=== PATIENT | female | born 1995 | race African-American/Black ===

== ENCOUNTER 2016-05-16 16:09 | Emergency (ER) | payer SELFPAY ==
[2016-05-16 16:41] VITALS: RESP 17
--- NOTE | 2016-05-16 18:15 | EDPHY ---
H & P Time Seen by Provider: 05/16/16 17:58 HPI/ROS: CHIEF COMPLAINT: Rash in armpits HISTORY OF PRESENT ILLNESS: 21-year-old female presents with a 2 day history of a itchy and painful rash in her armpits. She 1st noticed the rash 2 days ago. She has shaved her armpits more recently than usual. She also is using a new fragrance to her so. No prior similar symptoms. No other itchy areas. REVIEW OF SYSTEMS: Constitutional: No fever, no chills Musculoskeletal: No arm pain or swelling Neurological: No headache Psychiatric: No depression Past Medical/Surgical History: Denies Smoking Status: Never smoked Physical Exam: General Appearance: Alert, no distress Eyes: Pupils equal and round, no conjunctival pallor or injection ENT, Mouth: Mucous membranes moist Neck: Normal inspection Respiratory: Lungs are clear to auscultation Cardiovascular: Regular rate and rhythm Neurological: A&O, nonfocal, normal gait Skin: Warm and dry, raised papular rash in the axilla, no fluctuance Psychiatric: Mood and affect normal Constitutional: Initial Vital Signs Temperature (C) 36.9 C 05/16/16 16:38 Heart Rate 81 05/16/16 16:38 Respiratory Rate 17 05/16/16 16:38 Blood Pressure 142/96 H 05/16/16 16:38 O2 Sat (%) 96 05/16/16 16:38 O2 Delivery Mode Room Air Allergies/Adverse Reactions: nickel Allergy (Verified 05/16/16 16:38) Home Medications: Medication Instructions Recorded Cephalexin [Keflex (*)] 500 mg PO TID #21 cap 05/16/16 Fluconazole [Diflucan] 200 mg PO ONCE #2 tablet 05/16/16 predniSONE 1 tab PO DAILY #15 tab 05/16/16 Medical Decision Making ED Course/Re-evaluation: This patient presents with contact dermatitis. There is no evidence of abscess or cellulitis. - Data Points Medications Given: Discontinued Medications Prednisone (Prednisone) 60 mg PO EDNOW ONE Stop: 05/16/16 18:22 Last Admin: 05/16/16 18:38 Dose: 60 mg Departure - Departure Disposition: Home, Routine, Self-Care Clinical Impression: Contact dermatitis Condition: Good Instructions: Contact Dermatitis (ED) Additional Instructions: Return for worsening symptoms or any concerns. Discard your razor. Avoid new soaps and detergents. Referrals: Alice Bro MD [Medical Doctor] - 5-7 days, if not improved Prescriptions: Cephalexin [Keflex (*)] 500 mg PO TID #21 cap Fluconazole [Diflucan] 200 mg PO ONCE #2 tablet predniSONE 1 tab PO DAILY #15 tab
[2016-05-16] MEDS ORDERED: predniSONE 20 MG TAB PO ONE (18:21)
[2016-05-16 18:39] VITALS: BP 132/84; PULSE 68; TEMP 98.2; O2SAT 99
== END 2016-05-16 18:38 | disposition home or self-care (01) ==
DX: L25.9 Unspecified contact dermatitis, unspecified cause (principal)

== ENCOUNTER 2016-10-17 16:41 | Emergency (ER) | payer SELFPAY ==
[2016-10-17 16:46] VITALS: BP 136/101; PULSE 126; RESP 16; TEMP 98.6; O2SAT 97
--- NOTE | 2016-10-17 17:46 | EDPHY ---
H & P Time Seen by Provider: 10/17/16 17:15 HPI/ROS: CHIEF COMPLAINT: Gas, abdominal bloating HISTORY OF PRESENT ILLNESS: 21-year-old female presents to the emergency department by private vehicle complaining of gas and intermittent diarrhea for last several months. Patient has not been on antibiotics recently. She saw a naturopathic doctor who prescribed probiotics and enzymes which she has been taking and she feels like her symptoms are getting worse. She was a pescetarian up until about 2 months ago, however she states no other change to her diet. She reports no trauma. Denies chest pain or difficulty breathing. Denies fevers or chills. No urinary symptoms. Her last menstrual period was a few weeks ago although prior to that she skipped 2 cycles. She states that her boyfriend has noted very foul smelling of flatulence. The patient states that she cannot smell it but feels that other scan. She has tried no over-the- counter medication. She does have occasional abdominal pain associated with although does not have any now. She has not been on antibiotics. No recent travel. REVIEW OF SYSTEMS: Constitutional: No fever, no chills. Eyes: No double or blurry vision. ENT: No sore throat. Respiratory: No cough, no shortness of breath. Cardiac: No chest pain. Gastrointestinal: As above. No vomiting. Occasional diarrhea. No blood in her stool. Genitourinary: No dysuria. Musculoskeletal: No neck or back pain. Skin: No rashes. Neurological: No headache. Past Medical/Surgical History: Negative Social History: Single Smoking Status: Current every day smoker Physical Exam: General Appearance: Alert, no distress. Afebrile. Eyes: Pupils equal and round. Extraocular motions are all intact. ENT: Mouth: Mucous membranes moist. Respiratory: No wheezing, rhonchi, or rales, lungs are clear to auscultation. Cardiovascular: Regular rate and rhythm. Gastrointestinal: Abdomen is soft and nontender, no masses, no rebound or guarding, bowel sounds normal. No CVA tenderness bilaterally Neurological: Alert and oriented x 3, cranial nerves II through XII grossly intact Skin: Warm and dry, no rashes. Musculoskeletal: Nontender to palpate along the cervical, thoracic or lumbar spine. Neck is supple. Extremities: Full range of motion and no peripheral edema. Psychiatric: Patient is oriented X 3, there is no agitation. Constitutional: Initial Vital Signs Temperature (C) 37 C 10/17/16 16:42 Heart Rate 126 H 10/17/16 16:42 Respiratory Rate 16 10/17/16 16:42 Blood Pressure 136/101 H 10/17/16 16:42 O2 Sat (%) 97 10/17/16 16:42 O2 Delivery Mode Room Air Allergies/Adverse Reactions: nickel Allergy (Verified 10/17/16 16:41) Home Medications: Medication Instructions Recorded NK [No Known Home Meds] 10/17/16 Medical Decision Making ED Course/Re-evaluation: 21-year-old female presents to the emergency department with gas and bloating. The patient has a normal examination. She currently has no abdominal pain. Her symptoms have been present for 2 months. I did discuss possible Helicobacter pylori. I also discussed celiac disease. I encouraged her to drink plenty of fluids and to have close follow-up with admitting clerk. I do not think imaging studies are indicated. She has no reported trauma. She has no pain with palpation in the abdomen currently. Her bowel sounds are normal. Her vital signs are stable. Urine HCG was negative. Differential Diagnosis: Including but not limited to irritable bowel syndrome, inflammatory bowel disease, infectious diarrhea, colitis, bowel obstruction Departure - Departure Disposition: Home, Routine, Self-Care Clinical Impression: Flatulence Abdominal pain Qualifiers: Abdominal location: generalized Qualified Code(s): R10.84 - Generalized abdominal pain Condition: Good Instructions: Gas and Bloating (ED) Additional Instructions: Diet and activity as tolerated. You need to be seen by Gastroenterology for your ongoing chronic gas and bloating. Try to minimize high-fiber foods as this can sometimes cause worsening bloating and gas. Drink plenty of fluids. Abdominal Pain: Return to the Emergency Department immediately for increasing pain, fever, vomiting, or if not completely better in 8-12 hours. Referrals: Benjamin Smith MD [[facility] [place] Primary Care Provider] - 2-3 days without fail ( Proof Technician on-call)
== END 2016-10-17 18:33 | disposition home or self-care (01) ==
DX: R10.84 Generalized abdominal pain (principal); R14.3 Flatulence; F17.200 Nicotine dependence, unspecified, uncomplicated

== ENCOUNTER 2016-10-24 23:13 | Emergency (ER) | payer SELFPAY ==
[2016-10-24] MEDS ORDERED: NS 1,000 ML IV ONE (23:29)
--- NOTE | 2016-10-24 23:34 | EDPHY ---
H & P <Jordyn Infante - Last Filed: 10/25/16 01:56> Stated Complaint: productive cough x 2 weeks, diarrhea, cramps x 2 days Source: Patient Exam Limitations: No limitations - Personal History LMP (Females 10-55): 15-21 Days Ago Current Tetanus/Diphtheria Vaccine: Yes - Medical/Surgical History Hx Asthma: No Hx Chronic Respiratory Disease: No Hx Diabetes: No Hx Cardiac Disease: No Hx Renal Disease: No Hx Cirrhosis: No Hx Alcoholism: No Hx HIV/AIDS: No Hx Splenectomy or Spleen Trauma: No Other PMH: Tonsillectomy - Social History Smoking Status: Former smoker <MayerGurmeet - Last Filed: 10/26/16 01:02> Time Seen by Provider: 10/24/16 23:31 HPI/ROS: ED PA DICTATION I evaluated and participated in the management of the patient. I also evaluated the patient independently. My co-signature indicates that I have reviewed this chart and I agree with the findings and plan of care as documented. My personal H&P findings include: This is a healthy 21-year-old female who presents with cough and subsequent diarrhea. Chest x-ray reveals bronchitis, for this I will treat her with albuterol and Tessalon Perles. She does not demonstrate any signs of a bacterial infection. Labs including CBC and chemistry panel are unremarkable. She was unable to provide a stool specimen for us. She felt well in the emergency room. Blood pressure continued to be elevated throughout her stay. I have discussed this with her and she says she has had elevated blood pressure readings in the past. She does not have a strong family history of hypertension. She denies any new medication use. She does not have a primary care doctor currently. Creatinine is normal. I have instructed her that over the next 1-2 days she needs to check her blood pressure at a pharmacy and if she has any elevated readings, she will need follow up with primary care. She does not have insurance, I have given her the information for [facility]. She says she will be able to go there and understands the consequences of untreated hypertension. (Jordyn Infante) CHIEF COMPLAINT: Cough x2 weeks, diarrhea x2 days HISTORY OF PRESENT ILLNESS: Patient complains of productive cough for 2 weeks. Gradual onset. Constant duration. Will see productive, occasionally dry. No improvement with over-the- counter medications. No chest pain. No shortness of breath. She associates this with some malaise and feeling ill. For the past 2 days she has also had some abdominal cramping and diarrhea. There are several episodes per day of diarrhea without blood or mucus. [place] warm at times but has not measured her temperature. No vomiting. Occasional nausea. She has not yet been evaluated for these complaints. No recent hospitalizations or antibiotics. Last menstrual period was 3 weeks ago. No other associated complaints or modifying factors. REVIEW OF SYSTEMS: Ten systems reviewed and are negative unless otherwise noted in the HPI PAST MEDICAL HISTORY: Denies any medical history SOCIAL HISTORY: Nonsmoker. No alcohol use. Works in [employer] FAMILY HISTORY: Noncontributory EXAMINATION General Appearance: Alert, no distress Head: normocephalic, atraumatic Eyes: Pupils equal and round, no conjunctival pallor or injection ENT, Mouth: Mucous membranes moist. Airway widely patent Neck: Normal inspection, supple, non-tender Respiratory: No wheezing or crackles. Mild rhonchi. No diminishment or retractions. No distress Cardiovascular: Tachycardic rate and regular rhythm. No murmur. Gastrointestinal: Abdomen is soft and nontender. No distention. No tympany. No rigidity. Nonacute abdomen. Back: non-tender, no bony abnormalities Neurological: A&O, nonfocal, normal gait Skin: Warm and dry, no rash Extremities: Nontender, no pedal edema Psychiatric: Mood and affect normal DIFFERENTIAL DIAGNOSES: Including but not limited to dehydration, viral illness, pneumonia, bronchitis, colitis, gastroenteritis, enteritis MDM: 11:30 p.m. Cough of 2 weeks duration with no improvement as well as 2 days of diarrhea. Vital signs reveal mild tachycardia no tachypnea and no hypoxia. Abdominal exam is benign. I have ordered IV fluid, laboratory studies and chest x-ray. She is resting comfortably in no acute distress. SUPERVISION: Patient was evaluated in conjunction with the supervising physician. Please see their note for details. (Gurmeet Mayer) Constitutional: Initial Vital Signs Temperature (C) 97.7 F 10/24/16 23:15 Heart Rate 98 10/24/16 23:15 Respiratory Rate 16 10/24/16 23:15 Blood Pressure 152/100 H 10/24/16 23:15 O2 Sat (%) 98 10/24/16 23:15 O2 Delivery Mode Room Air Allergies/Adverse Reactions: nickel Allergy (Verified 10/24/16 23:18) Home Medications: Medication Instructions Recorded Benzonatate [Tessalon Pearles (RX)] 100 mg PO Q4-6PRN PRN #20 cap 10/25/16 Medical Decision Making - Diagnostics Imaging: I viewed and interpreted images myself <Jordyn Infante - Last Filed: 10/25/16 01:56> Departure <Jordyn Infante - Last Filed: 10/25/16 01:56> <Gurmeet Mayer - Last Filed: 10/26/16 01:02> - Departure Disposition: Home, Routine, Self-Care Clinical Impression: Bronchitis, Elevated blood pressure reading Diarrhea Qualifiers: Diarrhea type: presumed infectious Qualified Code(s): A09 - Infectious gastroenteritis and colitis, unspecified Condition: Good Instructions: Albuterol (By breathing), Acute Bronchitis (ED), Acute Diarrhea ( ED), Hypertension (ED) Additional Instructions: It is very important that you recheck your blood pressure in the next 1-2 days. You can do this at a pharmacy. If your blood pressure is more than 120/80, you need to follow up with [facility]. Please call them for an appointment tomorrow. Please return to the emergency room if your worse in any way. Referrals: [facility],. [Clinic] - As per Instructions Stand Alone Forms: Work Excuse Prescriptions: Benzonatate [Tessalon Pearles (RX)] 100 mg PO Q4-6PRN PRN #20 cap PRN Reason: Cough, Mild
[2016-10-24 23:53] LABS: % IMMATURE GRANULYOCYTES 0.2 % (0.0-1.1); ABSOLUTE IMMATURE GRANULOCYTES 0.01 10^3/uL (0.00-0.10); ADD DIFF? NO; ADD MORPH? NO; ADD SCAN? NO; ATYPICAL LYMPHOCYTE FLAG 80 (0-99); FRAGMENT RBC FLAG 0 (0-99); HEMATOCRIT 43.3 % (38.0-47.0); HEMOGLOBIN 14.4 g/dL (12.6-16.3); LEFT SHIFT FLG 0 (0-99); LIPEMIA HEMOLYSIS FLAG 80 (0-99); MEAN CELL HEMOGLOBIN 30.3 pg (27.9-34.1); MEAN CELL HEMOGLOBIN CONCENTR. 33.3 g/dL (32.4-36.7); MEAN PLATELET VOLUME 9.1 fL (8.7-11.7); PLATELET CLUMPS FLAG 0 (0-99); PLATELET COUNT 373 10^3/uL (150-400); RED BLOOD CELL COUNT 4.76 10^6/uL (4.18-5.33)
[2016-10-24 23:54] LABS: ANION GAP 12 mEq/L (8-16); CALCIUM 9.4 mg/dL (8.5-10.4); CARBON DIOXIDE 25 mEq/l (22-31); CHLORIDE 102 mEq/L (97-110); CREATININE 0.8 mg/dL (0.6-1.0); GLOMERULAR FILTRATION RATE > 60; GLUCOSE 81 mg/dL (70-100); POTASSIUM 3.6 mEq/L (3.5-5.2); SODIUM 139 mEq/L (134-144)
[2016-10-24 23:57] LABS: COLOR YELLOW; LEUKOCYTE ESTERASE,URINE NEGATIVE (NEGATIVE); NITRITE,URINE NEGATIVE (NEGATIVE)
[2016-10-25 00:07] VITALS: RESP 20
[2016-10-25 00:25] LABS: BACTERIA TRACE /hpf (NONE SEEN); MUCUS 1+ /lpf (NONE-1+)
[2016-10-25] MEDS ORDERED: ALBUTEROL INH PREPACK MDI TAKEHOME ONE (00:31)
[2016-10-25 01:03] VITALS: BP 144/119; PULSE 91; TEMP 98.2; O2SAT 98
== END 2016-10-25 01:11 | disposition home or self-care (01) ==
DX: A09 Infectious gastroenteritis and colitis, unspecified (principal); J40 Bronchitis, not specified as acute or chronic; R03.0 Elevated blood-pressure reading, without diagnosis of hypertension; E86.9 Volume depletion, unspecified; Z87.891 Personal history of nicotine dependence

== ENCOUNTER 2016-11-29 11:43 | Emergency (ER) | payer SELFPAY ==
[2016-11-29 11:55] VITALS: TEMP 97.9
--- NOTE | 2016-11-29 13:33 | EDPHY ---
H & P Time Seen by Provider: 11/29/16 12:57 HPI/ROS: Chief complaint. Feels faint HPI. 21-year-old female presents with complaint diarrhea for 4 months. Diffuse abdominal cramping. Some cough. She was seen in our emergency department in October for an upper respiratory infection was treated with albuterol. She was seen about a week before that for some abdominal discomfort and flatulence. She has occasional nausea and vomiting. Occasional chills but no fever. She complains of some sores in her nose for the last several days. She has not had any evaluation outside of the emergency department. She tells me last cocaine use 4 months ago. She worked in [employer] over the summer but otherwise no foreign travel. She was also told previously that she had high blood pressure and needed to follow up with but has not done so. ROS Constitutional. Weakness Eyes. no problems with vision ENT. no sore throat, no nasal drainage Cardiovascular. no chest pain Respiratory. no shortness of breath, no cough Abdominal. Abdominal cramping with occasional nausea vomiting and diarrhea and flatulence . no problems urinating MS. no calf pain/swelling, no neck/back pain, no joint pain Skin. no rash Lymph. no swollen glands Neuro. no headache, no dizziness, no difficulty walking or with speech Past Medical/Surgical History: Healthy Social History: Single, daily smoker, no alcohol Smoking Status: Current every day smoker Physical Exam: General Appearance: Alert well-developed female mild distress vital signs significant for blood pressure 139/100 Eyes: Pupils equal and round no pallor or injection. ENT, Mouth: Mucous membranes are moist. Respiratory: There are no retractions, lungs are clear to auscultation. Cardiovascular: Regular rate and rhythm. Gastrointestinal: Abdomen is soft and nontender, no masses, bowel sounds normal. Neurological: Awake and alert, sensory and motor exams grossly normal. Skin: Warm and dry, no rashes. Musculoskeletal: Neck is supple nontender. Extremities symmetrical, full range of motion. Psychiatric: Patient is oriented X 3, there is no agitation. Constitutional: Initial Vital Signs Temperature (C) 36.6 C 11/29/16 11:52 Heart Rate 87 11/29/16 11:52 Respiratory Rate 22 H 11/29/16 11:52 Blood Pressure 139/100 H 11/29/16 11:52 O2 Sat (%) 100 11/29/16 11:52 O2 Delivery Mode Room Air Allergies/Adverse Reactions: nickel Allergy (Verified 11/29/16 11:51) Home Medications: Medication Instructions Recorded Dicyclomine HCl 20 mg PO BID #20 tablet 11/29/16 Medical Decision Making Procedures: IV normal saline ED Course/Re-evaluation: On re-evaluation patient and I discussed laboratory evaluation, treatment plan including need for follow-up with both Gastroenterology in primary care physician for management of blood pressure. We discussed criteria for return. She expresses understanding and agreement Differential Diagnosis: I considered electrolyte abnormalities, infectious etiology of her diarrhea after working in [employer]. I have considered management of her hypertension - Data Points Laboratory Results: Laboratory Results 11/29/16 12:40 11/29/16 12:40 11/29/16 11/29/16 11/29/16 12:40 12:40 12:40 WBC 10.07 10^3/uL H 10^3/uL (3.80-9.50) RBC 4.93 10^6/uL 10^6/uL (4.18-5.33) Hgb 15.3 g/dL g/dL (12.6-16.3) Hct 44.4 % % (38.0-47.0) MCV 90.1 fL fL (81.5-99.8) MCH 31.0 pg pg (27.9-34.1) MCHC 34.5 g/dL g/dL (32.4-36.7) RDW 12.8 % % (11.5-15.2) Plt Count 368 10^3/uL 10^3/uL (150-400) MPV 9.3 fL fL (8.7-11.7) Neut % (Auto) 63.6 % % (39.3-74.2) Lymph % (Auto) 24.6 % % (15.0-45.0) Graves % (Auto) 9.9 % % (4.5-13.0) Eos % (Auto) 0.5 % L % (0.6-7.6) Baso % (Auto) 1.0 % % (0.3-1.7) Nucleat RBC Rel Count 0.0 % % (0.0-0.2) Absolute Neuts (auto) 6.40 10^3/uL 10^3/uL (1.70-6.50) Absolute Lymphs (auto) 2.48 10^3/uL 10^3/uL (1.00-3.00) Absolute Monos (auto) 1.00 10^3/uL H 10^3/uL (0.30-0.80) Absolute Eos (auto) 0.05 10^3/uL 10^3/uL (0.03-0.40) Absolute Basos (auto) 0.10 10^3/uL 10^3/uL (0.02-0.10) Absolute Nucleated RBC 0.00 10^3/uL 10^3/uL (0-0.01) Immature Gran % 0.4 % % (0.0-1.1) Immature Gran # 0.04 10^3/uL 10^3/uL (0.00-0.10) Sodium 138 mEq/L mEq/L (134-144) Potassium 3.6 mEq/L mEq/L (3.5-5.2) Chloride 103 mEq/L mEq/L (97-110) Carbon Dioxide 21 mEq/l L mEq/l (22-31) Anion Gap 14 mEq/L mEq/L (8-16) BUN 14 mg/dL mg/dL (7-23) Creatinine 0.8 mg/dL mg/dL (0.6-1.0) Estimated GFR > 60 Glucose 90 mg/dL mg/dL (70-100) Calcium 9.7 mg/dL mg/dL (8.5-10.4) Total Bilirubin 0.7 mg/dL mg/dL (0.1-1.4) Conjugated Bilirubin 0.4 mg/dL mg/dL (0.0-0.5) Unconjugated Bilirubin 0.3 mg/dL mg/dL (0.0-1.1) AST 33 IU/L IU/L (14-46) ALT 21 IU/L IU/L (9-52) Alkaline Phosphatase 68 IU/L IU/L (38-126) Total Protein 7.7 g/dL g/dL (6.3-8.2) Albumin 4.2 g/dL g/dL (3.5-5.0) Lipase 125 IU/L IU/L (23-300) Beta HCG, Qual NEGATIVE Medications Given: Discontinued Medications Sodium Chloride (Ns) 1,000 mls @ 0 mls/hr IV EDNOW ONE; Wide Open PRN Reason: Protocol Stop: 11/29/16 13:51 Last Admin: 11/29/16 14:09 Dose: 1,000 mls Departure - Departure Disposition: Home, Routine, Self-Care Clinical Impression: Hypertension Qualifiers: Hypertension type: unspecified Qualified Code(s): I10 - Essential (primary) hypertension Diarrhea Qualifiers: Diarrhea type: unspecified type Qualified Code(s): R19.7 - Diarrhea, unspecified Condition: Good Instructions: Chronic Diarrhea (ED), Hypertension (ED) Referrals: NONE *PRIMARY CARE P,. [Primary Care Provider] - As per Instructions Prescriptions: Dicyclomine HCl 20 mg PO BID #20 tablet
[2016-11-29] MEDS ORDERED: NS 1,000 ML IV ONE (13:50)
[2016-11-29 13:56] LABS: % IMMATURE GRANULYOCYTES 0.4 % (0.0-1.1); ABSOLUTE IMMATURE GRANULOCYTES 0.04 10^3/uL (0.00-0.10); ADD DIFF? NO; ADD MORPH? NO; ADD SCAN? NO; ATYPICAL LYMPHOCYTE FLAG 30 (0-99); FRAGMENT RBC FLAG 0 (0-99); HEMATOCRIT 44.4 % (38.0-47.0); HEMOGLOBIN 15.3 g/dL (12.6-16.3); LEFT SHIFT FLG 0 (0-99); LIPEMIA HEMOLYSIS FLAG 90 (0-99); MEAN CELL HEMOGLOBIN CONCENTR. 34.5 g/dL (32.4-36.7); MEAN CELL VOLUME 90.1 fL (81.5-99.8); MEAN PLATELET VOLUME 9.3 fL (8.7-11.7); PLATELET CLUMPS FLAG 20 (0-99); PLATELET COUNT 368 10^3/uL (150-400); RED BLOOD CELL COUNT 4.93 10^6/uL (4.18-5.33); RED CELL DISTRIBUTION WIDTH 12.8 % (11.5-15.2)
[2016-11-29 14:11] LABS: ALANINE AMINOTRANSFERASE 21 IU/L (9-52); ALBUMIN 4.2 g/dL (3.5-5.0); ALKALINE PHOSPHATASE 68 IU/L (38-126); ANION GAP 14 mEq/L (8-16); ASPARTATE AMINOTRANSFERASE 33 IU/L (14-46); BILIRUBIN,TOTAL 0.7 mg/dL (0.1-1.4); BILIRUBIN-CONJUGATED 0.4 mg/dL (0.0-0.5); BILIRUBIN-UNCONJUGATED 0.3 mg/dL (0.0-1.1); CALCIUM 9.7 mg/dL (8.5-10.4); CARBON DIOXIDE 21 mEq/l (22-31); CHLORIDE 103 mEq/L (97-110); CREATININE 0.8 mg/dL (0.6-1.0); GLOMERULAR FILTRATION RATE > 60; GLUCOSE 90 mg/dL (70-100); POTASSIUM 3.6 mEq/L (3.5-5.2); SODIUM 138 mEq/L (134-144); TOTAL PROTEIN 7.7 g/dL (6.3-8.2)
[2016-11-29 15:37] VITALS: BP 117/92; PULSE 82; RESP 18; O2SAT 99
== END 2016-11-29 15:37 | disposition home or self-care (01) ==
DX: I10 Essential (primary) hypertension (principal); R19.7 Diarrhea, unspecified; E86.9 Volume depletion, unspecified; F17.200 Nicotine dependence, unspecified, uncomplicated

== ENCOUNTER 2016-12-28 14:13 | Emergency (ER) | payer MEDICAID ==
[2016-12-28 14:20] VITALS: RESP 17; O2SAT 96
--- NOTE | 2016-12-28 15:23 | EDPHY ---
H & P Stated Complaint: 6 MONTHS GENERALIZED ABD PAIN SEEN PREVIOUSLY FOR SAME WORSE LAST 2 DAYS HPI/ROS: HPI CHIEF COMPLAINT: Nausea, abdominal cramps, diarrhea. HISTORY OF PRESENT ILLNESS: This patient is a 21-year-old female, presents emergency room with abdominal cramping diffusely watery diarrhea nonbloody and associated nausea. Patient reports to me that she has had this for 4-5 months. However the last 2-3 days it has gotten worse. Diffuse abdominal cramping. She denies fever. Denies chest pain or shortness of breath. The pain is located diffusely crampy in nature. She had watery diarrhea. She is followed by [facility]. She has been referred to GI but has not seen GI. She thinks she may have a IBS. Decided come the emergency room tonight due to diffuse crampy abdominal pain. Past Medical History: Chronic abdominal cramps and diarrhea Past Surgical History: No recent surgery Social History: Denies daily use drugs alcohol tobacco products. Family History: Noncontributory. ROS REVIEW OF SYSTEMS: A comprehensive 10 point review of systems is otherwise negative aside from elements mentioned in the history of present illness. Exam Constitutional appears well nontoxic triage nursing summary reviewed, vital signs reviewed, awake/alert. Eyes normal conjunctivae and sclera, EOMI, PERRLA. HENT normal inspection, atraumatic, moist mucus membranes, no epistaxis, neck supple/ no meningismus, no raccoon eyes. Respiratory clear to auscultation bilaterally, normal breath sounds, no respiratory distress, no wheezing. Cardiovascular rate normal, regular rhythm, no murmur, no edema, distal pulses normal. Gastrointestinal I could not elicit any significant dominant tenderness on exam , however patient complains of mild diffuse tenderness. soft, no rebound, no guarding, normal bowel sounds, no distension, no pulsatile mass. Genitourinary no CVA tenderness. Musculoskeletal no midline vertebral tenderness, full range of motion, no calf swelling, no tenderness of extremities, no meningismus, good pulses, neurovascularly intact. Skin pink, warm, & dry, no rash, skin atraumatic. Neurologic awake, alert and oriented x 3, AAOx3, moves all 4 extremities equally, motor intact, sensory intact, CN II-XII intact, normal cerebellar, normal vision, normal speech. Psychiatric normal mood/affect. Heme/Lymph/Immune no lymphadenopathy. Differential diagnosis includes but is not limited to and in no particular order : Bowel obstruction, appendicitis, gallbladder disease, diverticulitis, colitis , enteritis, perforated viscus, gastritis, GERD, esophagitis, urinary tract infection, pyelonephritis, kidney stones Medical Decision Making: Plan for this patient IV establishment IV fluids, check stool sample. Electrolytes. Her abdomen is rather soft here in the emergency room. I do not feel that she needs emergent imaging. Re-evaluation: 171: Re-examination at this time. Patient resting comfortably. No vomiting. Abdomen remained soft. She is not having significant pain she feels much better after IV fluids. Unable to produce a stool sample. Will send home with stool kit. GI referral. She understands return emergency room if she develops worsening abdominal pain fever vomiting Source: Patient - Personal History LMP (Females 10-55): 22-28 Days Ago Current Tetanus/Diphtheria Vaccine: Unsure - Medical/Surgical History Hx Asthma: No Hx Chronic Respiratory Disease: No Hx Diabetes: No Hx Cardiac Disease: No Hx Renal Disease: No Hx Cirrhosis: No Hx Alcoholism: No Hx HIV/AIDS: No Hx Splenectomy or Spleen Trauma: No Other PMH: Tonsillectomy - Social History Smoking Status: Current every day smoker Constitutional: Initial Vital Signs Temperature (C) 37.2 C 12/28/16 14:18 Heart Rate 108 H 12/28/16 14:18 Respiratory Rate 17 12/28/16 14:18 Blood Pressure 118/78 12/28/16 14:18 O2 Sat (%) 96 12/28/16 14:18 O2 Delivery Mode Room Air Allergies/Adverse Reactions: nickel Allergy (Verified 12/28/16 14:17) Home Medications: Medication Instructions Recorded Dicyclomine HCl 20 mg PO BID #20 tablet 11/29/16 Ondansetron HCl [Zofran] 4 mg PO Q4-6PRN PRN #10 tablet 12/28/16 Ranitidine HCl [Zantac] 150 mg PO DAILY #14 tablet 12/28/16 Medical Decision Making - Data Points Laboratory Results: Laboratory Results 12/28/16 15:29 12/28/16 15:29 12/28/16 12/28/16 12/28/16 15:29 15:29 15:29 WBC 6.03 10^3/uL 10^3/uL (3.80-9.50) RBC 4.47 10^6/uL 10^6/uL (4.18-5.33) Hgb 14.0 g/dL g/dL (12.6-16.3) Hct 41.5 % % (38.0-47.0) MCV 92.8 fL fL (81.5-99.8) MCH 31.3 pg pg (27.9-34.1) MCHC 33.7 g/dL g/dL (32.4-36.7) RDW 13.0 % % (11.5-15.2) Plt Count 323 10^3/uL 10^3/uL (150-400) MPV 9.1 fL fL (8.7-11.7) Neut % (Auto) 48.6 % % (39.3-74.2) Lymph % (Auto) 38.6 % % (15.0-45.0) [place] % (Auto) 9.5 % % (4.5-13.0) Eos % (Auto) 2.3 % % (0.6-7.6) Baso % (Auto) 0.8 % % (0.3-1.7) Nucleat RBC Rel Count 0.0 % % (0.0-0.2) Absolute Neuts (auto) 2.93 10^3/uL 10^3/uL (1.70-6.50) Absolute Lymphs (auto) 2.33 10^3/uL 10^3/uL (1.00-3.00) Absolute Monos (auto) 0.57 10^3/uL 10^3/uL (0.30-0.80) Absolute Eos (auto) 0.14 10^3/uL 10^3/uL (0.03-0.40) Absolute Basos (auto) 0.05 10^3/uL 10^3/uL (0.02-0.10) Absolute Nucleated RBC 0.00 10^3/uL 10^3/uL (0-0.01) Immature Gran % 0.2 % % (0.0-1.1) Immature Gran # 0.01 10^3/uL 10^3/uL (0.00-0.10) Sodium 141 mEq/L mEq/L (134-144) Potassium 3.9 mEq/L mEq/L (3.5-5.2) Chloride 105 mEq/L mEq/L (97-110) Carbon Dioxide 28 mEq/l mEq/l (22-31) Anion Gap 8 mEq/L mEq/L (8-16) BUN 11 mg/dL mg/dL (7-23) Creatinine 0.8 mg/dL mg/dL (0.6-1.0) Estimated GFR > 60 Glucose 81 mg/dL mg/dL (70-100) Calcium 9.1 mg/dL mg/dL (8.5-10.4) Total Bilirubin < 0.1 mg/dL L mg/dL (0.1-1.4) Conjugated Bilirubin 0.1 mg/dL mg/dL (0.0-0.5) Unconjugated Bilirubin 0.0 mg/dL mg/dL (0.0-1.1) AST 19 IU/L IU/L (14-46) ALT 22 IU/L IU/L (9-52) Alkaline Phosphatase 90 IU/L IU/L (38-126) Total Protein 6.5 g/dL g/dL (6.3-8.2) Albumin 3.6 g/dL g/dL (3.5-5.0) Lipase 121 IU/L IU/L (23-300) Beta HCG, Qual NEGATIVE Medications Given: Discontinued Medications Sodium Chloride (Ns) 1,000 mls @ 0 mls/hr IV EDNOW ONE; Wide Open PRN Reason: Protocol Stop: 12/28/16 15:26 Last Admin: 12/28/16 15:37 Dose: 1,000 mls Ondansetron HCl (Zofran) 4 mg IVP EDNOW ONE Stop: 12/28/16 15:31 Last Admin: 12/28/16 15:37 Dose: 4 mg Departure - Departure Disposition: Home, Routine, Self-Care Clinical Impression: Diarrhea Qualifiers: Diarrhea type: unspecified type Qualified Code(s): R19.7 - Diarrhea, unspecified Condition: Good Instructions: Irritable Bowel Syndrome (ED) Additional Instructions: 1. Please return emergency room if he develops worsening abdominal pain fever vomiting. 2. Please follow up with Gastroenterology 3. Return emergency room if you have worsening abdominal pain. Referrals: Patient,NotPresent [Primary Care Provider] - As per Instructions Jaaml Grey MD [Medical Doctor] - As per Instructions Prescriptions: Ondansetron HCl [Zofran] 4 mg PO Q4-6PRN PRN #10 tablet PRN Reason: Nausea/Vomiting, Use 1st Ranitidine HCl [Zantac] 150 mg PO DAILY #14 tablet
[2016-12-28] MEDS ORDERED: NS 1,000 ML IV ONE (15:25)
[2016-12-28] MEDS ORDERED: ONDANSETRON 4 MG/2 ML VIAL IVP ONE (15:30)
[2016-12-28 15:41] LABS: % IMMATURE GRANULYOCYTES 0.2 % (0.0-1.1); ABSOLUTE IMMATURE GRANULOCYTES 0.01 10^3/uL (0.00-0.10); ADD DIFF? NO; ADD MORPH? NO; ADD SCAN? NO; ATYPICAL LYMPHOCYTE FLAG 50 (0-99); FRAGMENT RBC FLAG 0 (0-99); HEMATOCRIT 41.5 % (38.0-47.0); LEFT SHIFT FLG 0 (0-99); LIPEMIA HEMOLYSIS FLAG 80 (0-99); MEAN CELL HEMOGLOBIN 31.3 pg (27.9-34.1); MEAN CELL HEMOGLOBIN CONCENTR. 33.7 g/dL (32.4-36.7); MEAN CELL VOLUME 92.8 fL (81.5-99.8); MEAN PLATELET VOLUME 9.1 fL (8.7-11.7); PLATELET CLUMPS FLAG 0 (0-99); PLATELET COUNT 323 10^3/uL (150-400); RED BLOOD CELL COUNT 4.47 10^6/uL (4.18-5.33)
[2016-12-28 16:04] LABS: ALANINE AMINOTRANSFERASE 22 IU/L (9-52); ALBUMIN 3.6 g/dL (3.5-5.0); ALKALINE PHOSPHATASE 90 IU/L (38-126); ANION GAP 8 mEq/L (8-16); ASPARTATE AMINOTRANSFERASE 19 IU/L (14-46); CALCIUM 9.1 mg/dL (8.5-10.4); CARBON DIOXIDE 28 mEq/l (22-31); CHLORIDE 105 mEq/L (97-110); CREATININE 0.8 mg/dL (0.6-1.0); GLOMERULAR FILTRATION RATE > 60; GLUCOSE 81 mg/dL (70-100); POTASSIUM 3.9 mEq/L (3.5-5.2); SODIUM 141 mEq/L (134-144); TOTAL PROTEIN 6.5 g/dL (6.3-8.2)
[2016-12-28 16:06] LABS: BILIRUBIN,TOTAL < 0.1 mg/dL (0.1-1.4); BILIRUBIN-CONJUGATED 0.1 mg/dL (0.0-0.5)
[2016-12-28 17:31] LABS: COLOR YELLOW; LEUKOCYTE ESTERASE,URINE NEGATIVE (NEGATIVE); NITRITE,URINE NEGATIVE (NEGATIVE)
[2016-12-28 17:38] LABS: AMORPHOUS PRESENT /hpf (NONE-1+)
[2016-12-28 17:39] LABS: WBC,URINE NONE SEEN /hpf (0-3)
[2016-12-28 17:49] VITALS: BP 131/78; PULSE 82; TEMP 98.8
== END 2016-12-28 17:46 | disposition home or self-care (01) ==
DX: R19.7 Diarrhea, unspecified (principal); F17.200 Nicotine dependence, unspecified, uncomplicated; E86.9 Volume depletion, unspecified
CPT/HCPCS: 96374; J2405